=== PATIENT | male | born 1995 | race Caucasian/White ===

== ENCOUNTER 2020-03-28 16:51 | Emergency (ER) | payer BC ==
[~2020-03-28] VITALS: Ht 170.2 cm; Wt 90.9 kg
[2020-03-28 19:07] LABS: D-DIMER 0.24 MG/L FEU (0-0.50)
[2020-03-28 19:35] VITALS: BP 132/89
== END 2020-03-28 19:40 | disposition home or self-care (01) ==
LOC: ER 16:51
DX: U07.1 COVID-19 (principal); R07.9 Chest pain, unspecified
CPT/HCPCS: 36415; 71045; 85379; 93005; 99285

== ENCOUNTER 2021-05-13 16:42 | Emergency (ER) | payer BC, OTHER ==
[~2021-05-13] VITALS: Ht 170.2 cm; Wt 90.0 kg
[2021-05-13 16:45] VITALS: BP 128/83
[2021-05-13] MEDS ORDERED: GUAI400T92 PO (19:03)
[2021-05-13] MEDS ORDERED: BENZ-38 PO (19:03)
--- NOTE | 2021-05-13 19:25 | NUR ---
Pt given and understands d/c instructions. Ambulatory with a steady gait.
== END 2021-05-13 19:25 | disposition home or self-care (01) ==
LOC: ER 16:42
DX: B34.9 Viral infection, unspecified (principal); Z20.822 Contact with and (suspected) exposure to COVID-19; Z87.01 Personal history of pneumonia (recurrent); Z79.899 Other long term (current) drug therapy
CPT/HCPCS: 87635; 99283; C9803